=== PATIENT | female | born 1940 | race Caucasian/White ===

== ENCOUNTER 2020-06-28 07:14 | Outpatient (CLI) | payer MEDICARE | END 2020-06-28 07:15 | disposition home or self-care (01) | LOC: LAB.S 07:14 | PROVIDERS: ATTEND Family Medicine | DX: E03.9 Hypothyroidism, unspecified (principal) | CPT/HCPCS: 36415; 84443 ==

== ENCOUNTER 2020-07-01 09:01 | Emergency (ER) | payer MEDICARE ==
[2020-07-01] MEDS ORDERED: TRANEXAMIC ACID 1,000 MG/10 ML VIAL NAS STA (11:43)
--- NOTE | 2020-07-01 12:58 | ED Physician Documentation ---
History of Present Illness - Stated complaint Stated Complaint: right finger lac - Chief complaint Chief Complaint: Laceration - History obtained from History obtained from: Patient - Additonal information Additional information: 80yF presents with R 5th finger avulsion that occurred yesterday while using a mandolin in the kitchen. She bandaged it up after cleaning but it kept bleeding the next day so she came to the ED. denies other injury. no bone or joint involvement. 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: Hysterectomy - Allergies Allergies/Adverse Reactions: Allergies Allergy/AdvReac Type Severity Reaction Status Date / Time No Known Drug Allergies Allergy Verified 07/01/20 09:05 - Social History Does the pt smoke?: No Smoking Status: Never smoker Does the pt drink ETOH?: Yes ETOH Use: Wine Does the pt have substance abuse?: No - Immunizations Immunizations are current?: Yes PD ED PE NORMAL - Vitals Vital signs reviewed: Yes - General General: Alert and oriented X 3, No acute distress, Well developed/nourished - HEENT HEENT: Atraumatic, PERRL, EOMI - Derm Derm: Normal color, Warm and dry, Other (R fifth finger with distal tip avulsed skin without subQ, nailbed or joint involvement.) Results - Vitals Vitals: Vital Signs - 24 hr 07/01/20 07/01/20 07/01/20 09:05 10:50 13:06 Temperature 36.3 C L 36.8 C Heart Rate 88 72 84 Respiratory 18 18 15 Rate Blood Pressure 217/98 H 172/78 H 198/91 H O2 Saturation 99 96 96 Oxygen O2 Source Room air PD MEDICAL DECISION MAKING - ED course ED course: 80yF presents with R fifth finger with distal tip avulsed skin without subQ, nailbed or joint involvement. initially oozing blood but stopped after dipping in TXA solution for 20 minutes. return precautions given. f/u pmd. Departure - Departure Disposition: 01 Home, Self Care Clinical Impression: Avulsion of skin of finger Condition: Good Instructions: ED Avulsion Dermal Comments: You were seen in the emergency department for an avulsion (skin that has been ripped off leaving no tissue to be sewn up. You should leave your bandage on for 48 hours and then check it for any signs of infection including pus, severe swelling, severe worsening pain, streaking redness or other concerning symptoms. You should follow-up with your doctor in 1 week. Change the bandage daily and keep the finger clean. Discharge Date/Time: 07/01/20 13:10
[2020-07-01 13:06] VITALS: BP 198/91
--- OUTSIDE RECORDS SUMMARY | 2020-07-03 03:04 | EXTERNAL MEDICAL SUMMARY RPT | Continuity of Care Document ---
:1940 Demographics Phone Unavailable Preferred Language Unknown Marital Status Unknown Mandaen Affiliation Unknown Race Unknown Ethnic Group Unknown Author Organization [facility] Address [address] [id number] Phone Social History date description facility [phone]
== END 2020-07-01 13:10 | disposition home or self-care (01) ==
LOC: ED 09:01
DX: S61.206A Unspecified open wound of right little finger without damage to nail, initial encounter (principal); W27.4XXA Contact with kitchen utensil, initial encounter; Y93.G1 Activity, food preparation and clean up; Y92.000 Kitchen of unspecified non-institutional (private) residence as the place of occurrence of the external cause
CPT/HCPCS: 99282; 99283

== ENCOUNTER 2023-02-08 07:17 | Outpatient (CLI) | payer MEDICARE ==
[2023-02-08 15:07] LABS: BASOPHILS % (AUTO) 0.8 %; EOSINOPHILS # (AUTO) 0.2 10^3/uL (0.0-0.7); HCT - HEMATOCRIT 41.9 % (37.0-47.0); HGB - HEMOGLOBIN 13.1 g/dL (12.0-16.0); LYMPHOCYTES % (AUTO) 27.7 %; MEAN CORPUSCULAR HEMOGLOBIN 30.5 pg (27.0-31.0); MEAN CORPUSCULAR HGB CONC 31.3 g/dL (32.0-36.0); MEAN CORPUSCULAR VOLUME 97.4 fL (81.0-99.0); MEAN PLATELET VOLUME 10.4 fL (7.9-10.8); MONOCYTES # (AUTO) 0.7 10^3/uL (0.0-1.0); MONOCYTES % (AUTO) 17.3 %; NEUTROPHILS # (AUTO) 1.9 10^3/uL (1.5-6.6); NEUTROPHILS % (AUTO) 49.7 %; PLT - PLATELET COUNT 215 10^3/uL (130-450); RED CELL DISTRIBUTION WIDTH 13.7 % (12.0-15.0); WHITE BLOOD COUNT 3.8 x10^3/uL (4.8-10.8)
== END 2023-02-08 07:18 | disposition home or self-care (01) ==
LOC: LAB.S 07:17
PROVIDERS: ATTEND Family Medicine
DX: E03.9 Hypothyroidism, unspecified (principal); I48.91 Unspecified atrial fibrillation
CPT/HCPCS: 36415; 84443; 85025

== ENCOUNTER 2023-07-27 15:08 | Outpatient (CLI) | payer MEDICARE ==
--- NOTE | 2023-07-27 16:29 | DEXA Report ---
PROCEDURE: Dexa Spine and/or Hip INDICATIONS: OSTEOPENIA TECHNIQUE: Dual energy x-ray absorptiometry (DXA) was performed on a ReSnap System. Regions measur ed are the AP Spine, femoral neck, and if needed forearm. COMPARISON: None FINDINGS: Lumbar Spine: Bone Mineral Density: 0.942 g/cm/cm,T score: -2. Left Femoral Neck: Bone Mineral Density: 0.746 g/cm/cm, T score: -2.1. Left Hip: Bone Mineral Density: 0.749 g/cm/cm,T score: -2.1. (T score greater or equal to -1.0: NORMAL) (T score from -1.1 to -2.4: OSTEOPENIA) (T score less than or equal to -2.5 to: OSTEOPOROSIS) Impression: By WHO criteria, this patient has low bone density (osteopenia). Patients with diagnosis of osteoporosis or osteopenia should have regular bone mineral density assess ment. For those eligible for Medicare, routine testing is allowed once every 2 years. Testing frequ ency can be increased for patients who have rapidly progressing disease or for those who are receivin g medical therapy to restore bone mass. Reviewed by: Marti Stuart MD on 07/27/2023 4:28 PM PDT Approved by: Marti Stuart MD on 07/27/2023 4:28 PM PDT Station ID: [id number]
== END 2023-07-27 15:09 | disposition home or self-care (01) ==
LOC: DI 15:08
PROVIDERS: ATTEND Family Medicine
DX: Z13.820 Encounter for screening for osteoporosis (principal); M85.89 Other specified disorders of bone density and structure, multiple sites

== ENCOUNTER 2023-09-03 13:33 | Outpatient (CLI) | payer MEDICARE ==
--- NOTE | 2023-09-03 14:24 | CT Report ---
PROCEDURE: Head WO INDICATIONS: CONTUSION OF SCALP, INJURY OF HEAD TECHNIQUE: Noncontrast 4.5 mm thick angled axial sections acquired from the foramen magnum to the vertex. For r adiation dose reduction, the following was used: automated exposure control, adjustment of mA and/or kV according to patient size. COMPARISON: None. FINDINGS: Image quality: Excellent. CSF spaces: Basal cisterns are patent. No extra-axial fluid collections. Ventricles are normal in size and shape. Brain: No midline shift. No intracranial masses or hemorrhage. [place]-white matter interface is norm al. Skull and face: Calvarium and visualized facial bones are intact, without suspicious lesions. Sinuses: Mild chronic bilateral maxillary sinus disease. IMPRESSION: No acute intracranial pathology. Chronic sinus disease. Reviewed by: Moises Lowe MD on 09/03/2023 2:23 PM PDT Approved by: Moises Lowe MD on 09/03/2023 2:23 PM PDT Station ID: [id number]
== END 2023-09-03 13:34 | disposition home or self-care (01) ==
LOC: DI 13:33
PROVIDERS: ATTEND Registered Nurse
DX: S00.03XA Contusion of scalp, initial encounter (principal); S09.90XA Unspecified injury of head, initial encounter; J32.9 Chronic sinusitis, unspecified; Z79.01 Long term (current) use of anticoagulants